=== PATIENT | male | born 1995 | race Hispanic/Latino ===

== ENCOUNTER 2020-03-06 01:04 | Emergency (ER) | payer OTHER ==
[2020-03-06 15:04] LABS: SARS-CoV-2 MS2 Positive; SARS-CoV-2 N Gene Negative; SARS-CoV-2 S Gene Negative; SARS-CoV-2 by NAA Not Detected (NotDetected); SARS-CoV-2 orf1ab Negative
== END 2020-03-06 03:25 | disposition home or self-care (01) ==
LOC: ERS 01:04
DX: R09.81 Nasal congestion (principal); J34.89 Other specified disorders of nose and nasal sinuses; Z20.828 Contact with and (suspected) exposure to other viral communicable diseases; F90.9 Attention-deficit hyperactivity disorder, unspecified type; F17.210 Nicotine dependence, cigarettes, uncomplicated
CPT/HCPCS: 87635; 99283; U0003

== ENCOUNTER 2020-09-14 11:59 | Emergency (ER) | payer OTHER, SELFPAY ==
[2020-09-14] MEDS ORDERED: Acetaminophen 500 MG TAB ONE (12:25)
[2020-09-14] MEDS ORDERED: Ketorolac Tromethamine 30 MG/ML VIAL ONE (12:25)
[2020-09-14] MEDS ORDERED: Morphine 4 MG/ML VIAL ONE (12:53)
[2020-09-14] MEDS ORDERED: PROPOFOL 20 ML ONE (13:17)
[2020-09-14] MEDS ORDERED: Fentanyl 100 MCG/2 ML VIAL ONE (13:17)
== END 2020-09-14 16:55 | disposition home or self-care (01) ==
LOC: ERS 11:59
DX: S82.441A Displaced spiral fracture of shaft of right fibula, initial encounter for closed fracture (principal); S82.841A Displaced bimalleolar fracture of right lower leg, initial encounter for closed fracture; I10 Essential (primary) hypertension; F90.9 Attention-deficit hyperactivity disorder, unspecified type; Z87.891 Personal history of nicotine dependence; Z79.899 Other long term (current) drug therapy; W18.30XA Fall on same level, unspecified, initial encounter
CPT/HCPCS: 27788; 96374; 96375; 99152; J1885; J2270; J2704; J3010

== ENCOUNTER 2020-09-17 06:00 | Emergency (ER) | payer SELFPAY ==
[2020-09-17] MEDS ORDERED: Ondansetron PF 4 MG/2 ML Vial ONE (06:36)
[2020-09-17] MEDS ORDERED: Morphine 4 MG/ML VIAL ONE (06:36)
[2020-09-17 06:50] LABS: #Basophils 0.1 thou/uL (0.0-0.2); #Eosinphils 0.1 thou/uL (0.0-0.7); #Lymphocytes 2.2 thou/uL (1.20-3.40); #Monocytes 0.9 thou/uL (0.11-0.59); #Neutrophils 11.1 thou/uL (1.40-6.50); %Basophils 0.6 % (0.0-1.0); %Eosinophils 0.8 % (0.0-10.0); %Monocytes 6.5 % (0.0-10.0); %Neutrophils 77.1 % (42.0-75.0); Hemoglobin 14.2 g/dL (14.0-18.0); Mean Corpuscular HGB CONC 33.2 g/dL (32.0-36.0); Mean Corpuscular Hemoglobin 29.6 pg (27.0-31.0); Mean Corpuscular Volume 89.4 fL (78.0-98.0); Mean Platelet Volume 8.4 fL (7.4-10.4); Platelet Count 253 thou/uL (130-400); RBC Distribution Width 12.8 % (11.5-14.5); Red Blood Cell (RBC) Count 4.78 mill/uL (4.70-6.10); White Blood Cell (WBC) Count 14.4 thou/uL (4.8-10.8)
[2020-09-17 07:09] LABS: ALT (SGPT) 25 U/L (8-55); AST (SGOT) 19 U/L (5-34); Albumin 4.2 g/dL (3.5-5.0); Alkaline Phosphatase 89 U/L (40-110); Anion Gap 12 mmol/L (10-20); BUN (Urea Nitrogen) 12 mg/dL (8.9-20.6); Bilirubin, Total 0.6 mg/dL (0.2-1.2); Calc. Creatinine Clearance 0 mL/min (70-130); Calcium 9.4 mg/dL (7.8-10.44); Carbon Dioxide 29 mmol/L (22-29); Chloride 103 mmol/L (98-107); Globulin 3.3 g/dL (2.4-3.5); Glucose 116 mg/dL (70-105); Lipase 6 U/L (8-78); Potassium 4.1 mmol/L (3.5-5.1); Protein, Total 7.5 g/dL (6.0-8.3); Sodium 140 mmol/L (136-145)
[2020-09-17 07:26] LABS: Bilirubin Negative (Negative); Blood, Urine Negative (Negative); Clarity Clear (Clear); Glucose, Urine (Dipstick) Normal (Negative); Ketone, Urine Negative (Negative); Leukocyte Negative Leu/uL (Negative); Nitrite Negative (Negative); Protein, Urine (Dipstick) Negative (Neg-Trace); Specific Gravity, Urine 1.018 (1.002-1.036); Urobilinogen Normal mg/dL (Less than 2); pH, Urine 5.5 (5.0-9.0)
--- NOTE | 2020-09-17 07:40 | CT ---
ABDOMEN AND PELVIC CT SCAN WITH IV CONTRAST: Date: 09/17/2020 HISTORY: Epigastric pain. FINDINGS: The lung bases appear clear. Visualized liver, gallbladder, pancreas, spleen, and adrenal glands are unremarkable. No renal calculus or acute obstruction. No solid or cystic renal mass. No evidence f or large or small bowel obstruction. Normal appearing appendix. Small fat-containing umbilical and bi lateral inguinal hernias. No mass, abscess, adenopathy, or abnormal fluid collection within the abdom en or pelvis. IMPRESSION: No significant acute process in the abdomen or pelvis. POS: RRE
[2020-09-17] MEDS ORDERED: Mag-Al 1200 mg/1200 mg/30 ML UDCUP ONE (08:42)
[2020-09-17] MEDS ORDERED: Lidocaine Viscous Sol 2% 15 ml UD Cup ONE (08:42)
[2020-09-17] MEDS ORDERED: Pantoprazole 40 MG VIAL ONE (08:42)
== END 2020-09-17 09:55 | disposition home or self-care (01) ==
LOC: ERS 06:00
DX: K29.70 Gastritis, unspecified, without bleeding (principal); J45.909 Unspecified asthma, uncomplicated; Z87.891 Personal history of nicotine dependence; Z79.899 Other long term (current) drug therapy
CPT/HCPCS: 36415; 74177; 80053; 81003; 83690; 85025; 96374; 96375; C9113; J2270; J2405

== ENCOUNTER 2020-09-27 09:55 | Outpatient (CLI) | payer OTHER ==
[2020-09-27 15:54] LABS: SARS-CoV-2 PCR by NAA Not Detected (NotDetected)
== END 2020-09-27 09:56 | disposition home or self-care (01) ==
LOC: LABBT 09:55
PROVIDERS: ATTEND Physician Assistant
DX: S82.841A Displaced bimalleolar fracture of right lower leg, initial encounter for closed fracture (principal); Z20.822 Contact with and (suspected) exposure to COVID-19
CPT/HCPCS: 87635; U0003; U0005

== ENCOUNTER 2020-09-30 07:10 | Day surgery (SDC) | payer SELFPAY ==
[2020-09-29 09:46] VITALS: BMI 32.1
[2020-09-30] MEDS ORDERED: Clindamycin/D5W 900 mg/50 ml Premix Bag ONE (07:18)
[2020-09-30] MEDS ORDERED: Levofloxacin 500 mg/D5W 100 ml Premix Bag ONE (07:19)
[2020-09-30] MEDS ORDERED: Fentanyl 100 MCG/2 ML VIAL ONE ×2 (08:14→09:12)
[2020-09-30] MEDS ORDERED: Midazolam HCl 2 mg/2 ml Vial ONE (08:14)
[2020-09-30] MEDS ORDERED: Fentanyl 100 MCG/2 ML VIAL IV PRN (09:17)
[2020-09-30] MEDS ORDERED: Ropivacaine 0.2% 550 ML 550 ML NERVE BLCK SCH (09:30)
[2020-09-30] MEDS ORDERED: HYDROcodone/Acetaminophen 10/325 mg Tablet PO PRN ×2 (09:30)
[2020-09-30] MEDS ORDERED: traMADol HCl 50 MG TAB PO PRN ×2 (09:30)
[2020-09-30] MEDS ORDERED: Zolpidem Tartrate 5 MG TAB PO PRN (09:30)
[2020-09-30] MEDS ORDERED: Ondansetron PF 4 MG/2 ML Vial IVP PRN (09:30)
[2020-09-30] MEDS ORDERED: Promethazine HCl 25 MG/ML VIAL IM PRN (09:30)
[2020-09-30] MEDS ORDERED: PROPOFOL 200 MG/20 ML VIAL ONE (10:21)
[2020-09-30] MEDS ORDERED: Dexamethasone 20 MG/5 ML VIAL ONE (10:21)
[2020-09-30] MEDS ORDERED: Ropivacaine 0.5% HCl/PF (150 MG/30 ML VIAL) ONE (10:21)
[2020-09-30] MEDS ORDERED: Ketorolac Tromethamine 30 MG/ML VIAL ONE (10:21)
[2020-09-30] MEDS ORDERED: Ondansetron PF 4 MG/2 ML Vial ONE (10:21)
--- NOTE | 2020-09-30 15:09 | RAD ---
Radiograph right ankle 3 views: 09/30/2020 HISTORY: 25-year-old male with acute, traumatic ankle fractures COMPARISON: 09/14/2020 FINDINGS: Small [id number] fluoroscopic spot images obtained with C-arm in the OR. The distal fibular shaft fracture has been reduced, and fixated with long metallic plate with multipl e screws. Anatomical alignment. Now, 2 lack screws now fixate the reduced medial malleolar fracture, with improved alignment. A long transversely oriented screw extends from distal fibular metaphysis and metallic plate across t he entire transverse diameter of distal tibial metaphysis. Ankle mortise is congruent. IMPRESSION: 1. Status post open reduction internal fixation of traumatic fibular distal shaft fracture 2. Lack screws fixation of medial malleolar fracture
--- NOTE | 2020-10-01 14:01 | OP ---
DATE OF PROCEDURE: 09/30/2020 PREOPERATIVE DIAGNOSIS: Right bimalleolar ankle fracture with syndesmotic disruption. POSTOPERATIVE DIAGNOSIS: Right bimalleolar ankle fracture with syndesmotic disruption. PROCEDURE PERFORMED: Open reduction and internal fixation of right bimalleolar ankle fracture with syndesmotic screw placement. ANESTHESIA: General. CUTTER WET MACHINE: MIRELLA Madden. TOURNIQUET TIME: 63 minutes at 300 mmHg. ESTIMATED BLOOD LOSS: 10 mL. IMPLANT: Synthes 8-hole 1/3 tubular plate. COMPLICATIONS: None. DRAINS: None. SPECIMEN: None. OUTCOME: Satisfactory. INDICATIONS FOR PROCEDURE: The patient is a 25-year-old gentleman who is now about a week and a half status post right bimalleolar ankle fracture with some widening of the mortise. After discussion with the patient including risks and benefits, we decided to proceed with open reduction and internal fixation of this fracture as well as stabilization of the syndesmosis with the understanding that he would require a 2nd procedure for syndesmotic screw removal. I believe all questions have been answered. The patient does appear to understand. DESCRIPTION OF PROCEDURE: The patient was brought to the operating room and a time-out performed followed by induction of general anesthesia. Next, following the sterile prep and drape, the limb was exsanguinated with Esmarch bandage, tourniquet inflated to 300 mmHg. A vertical incision was made over the lateral malleolus after skin was sharply incised. Dissection was carried down bluntly exposing the underlying fracture. My treasury assistant provided retraction of soft tissues to allow me to debride the fracture gaps from the hematoma that was present. Once the fracture gaps were fully debrided, a bone tenaculum was used to stabilize a distal fracture line and then the major fracture line was reduced and held in place with bone tenaculum. Next, two interfragmentary compression screws were applied from anterior to posterior wall. My treasury assistant continued to provide retraction of soft tissues, so that I would have access for screw stabilization of the fracture. Once the two interfragmentary compression screws were applied, an 8-hole neutralization plate was placed on the lateral cortex of the distal fibula and held in place with combination of cortical screws proximally and cancellous screws distally. One screw hole was left open to except the ventral syndesmotic screw. Next, a second incision was made over the medial malleolus after skin was sharply incised. Dissection was carried down bluntly taking care to protect the saphenous vein. A bone tenaculum was then used to reduce and hold in place the medial malleolar fracture this after the fracture hematoma was removed from the cap. Once appropriately positioned, two 45 mm long, partially-threaded cancellous screws were passed from the tip of the medial malleolus obliquely across the fracture in the distal tibial metaphysis. At the completion of this, the fracture was near anatomically aligned. However, it was very apparent that the patient still had some instability of the syndesmosis. As such, the syndesmosis was reduced manually and well held reduced. A drill was passed from the lateral malleolar plate across both cortices of the lateral malleolus and across both cortices of the distal tibia. A 60 mm 4.0 cortical screw was then passed through this drill hole, stabilizing the mortise. At the completion of this AP, mortise, and lateral views were obtained that showed anatomic alignment of the fracture and appropriate positioning of hardware. The two incision sites were then thoroughly irrigated with normal saline and then closed in layers with 0 Vicryl deep followed by 2-0 Vicryl and iveth for the skin. A Xeroform gauze, Webril, and fiberglass splint was then applied to the right ankle. Tourniquet was let down, a total time of 63 minutes. Then, the patient was transferred to recovery room in stable condition. There were no complications. He tolerated the procedure well. Job ID: [id number]
== END 2020-09-30 14:00 | disposition home or self-care (01) ==
LOC: SDC 07:10
PROVIDERS: ATTEND Orthopaedic Surgery
PROC: 0QSG04Z Reposition Right Tibia with Internal Fixation Device, Open Approach (ICD-10-PCS; principal; 2020-09-30)
PROC: 0QSJ04Z Reposition Right Fibula with Internal Fixation Device, Open Approach (ICD-10-PCS; principal; 2020-09-30)
PROC: 3E0T3BZ Introduction of Anesthetic Agent into Peripheral Nerves and Plexi, Percutaneous Approach (ICD-10-PCS; principal; 2020-09-30)
DX: S82.841A Displaced bimalleolar fracture of right lower leg, initial encounter for closed fracture (principal); S93.431A Sprain of tibiofibular ligament of right ankle, initial encounter; G89.18 Other acute postprocedural pain; J45.909 Unspecified asthma, uncomplicated; F90.9 Attention-deficit hyperactivity disorder, unspecified type; F17.290 Nicotine dependence, other tobacco product, uncomplicated; Z79.899 Other long term (current) drug therapy; Z88.0 Allergy status to penicillin; W01.0XXA Fall on same level from slipping, tripping and stumbling without subsequent striking against object, initial encounter
CPT/HCPCS: 76000; A4306; C1713; J1100; J1885; J1956; J2250; J2405; J2704; J2795; J3010; J3490

== ENCOUNTER 2020-12-27 08:40 | Outpatient (CLI) | payer OTHER, SELFPAY ==
[2020-12-27 17:53] LABS: SARS-CoV-2 PCR by NAA Not Detected (NotDetected)
== END 2020-12-27 08:41 | disposition home or self-care (01) ==
LOC: LABBT 08:40
PROVIDERS: ATTEND Orthopaedic Surgery
DX: Z01.812 Encounter for preprocedural laboratory examination (principal); T85.848A Pain due to other internal prosthetic devices, implants and grafts, initial encounter; Z20.822 Contact with and (suspected) exposure to COVID-19
CPT/HCPCS: 87635; U0003; U0005

== ENCOUNTER 2020-12-30 05:36 | Day surgery (SDC) | payer SELFPAY ==
[2020-12-28 15:20] VITALS: BMI 32.8
[2020-12-30] MEDS ORDERED: Levofloxacin 500 mg/D5W 100 ml Premix Bag ONE (05:43)
[2020-12-30] MEDS ORDERED: Clindamycin/D5W 900 mg/50 ml Premix Bag ONE (05:43)
[2020-12-30] MEDS ORDERED: Ketorolac Tromethamine 30 MG/ML VIAL ONE (07:29)
[2020-12-30] MEDS ORDERED: PROPOFOL 200 MG/20 ML VIAL ONE (07:29)
[2020-12-30] MEDS ORDERED: Ondansetron PF 4 MG/2 ML Vial ONE (07:29)
[2020-12-30] MEDS ORDERED: Dexamethasone 20 MG/5 ML VIAL ONE (07:29)
[2020-12-30] MEDS ORDERED: Fentanyl 100 MCG/2 ML VIAL ONE (07:37)
[2020-12-30] MEDS ORDERED: Bupivacaine PF 0.5% 30 ML VIAL ONE (08:02)
== END 2020-12-30 09:40 | disposition home or self-care (01) ==
LOC: SDC 05:36
PROVIDERS: ATTEND Orthopaedic Surgery
PROC: 0SPF04Z Removal of Internal Fixation Device from Right Ankle Joint, Open Approach (ICD-10-PCS; principal; 2020-12-30)
DX: T84.9XXA Unspecified complication of internal orthopedic prosthetic device, implant and graft, initial encounter (principal); J45.909 Unspecified asthma, uncomplicated; F17.290 Nicotine dependence, other tobacco product, uncomplicated; Z79.899 Other long term (current) drug therapy; Z88.0 Allergy status to penicillin
CPT/HCPCS: 76000; J1100; J1885; J1956; J2405; J2704; J3010; J3490; S0020